=== PATIENT | female | born 1990 ===

== ENCOUNTER 2017-03-16 17:28 | Inpatient (IN) | payer OTHER ==
[~2017-03-16] VITALS: Ht 170.2 cm; Wt 122.5 kg
[2017-03-16 18:22] LABS: HEMOGLOBIN 11.2 gm/dl (12.3-15.3); RED BLOOD COUNT 3.61 M/UL (4.00-5.10)
[2017-03-16 18:42] LABS: BUN/CREATININE RATIO 20 (0-10)
[2017-03-18 04:14] LABS: HEMOGLOBIN 9.2 gm/dl (12.3-15.3)
[2017-03-19] MEDS ORDERED: COLACE 100MG C100 MG PO (11:47)
== END 2017-03-19 09:18 | disposition home or self-care (01) | DRG 766 ==
LOC: GENOP 17:28 → OB 17:45
PROVIDERS: Obstetrics & Gynecology; ADMIT Obstetrics & Gynecology
PROC: 10D00Z1 Extraction of Products of Conception, Low, Open Approach (ICD-10-PCS; principal; 2017-03-17 09:05)
PROC: 3E0234Z Introduction of Serum, Toxoid and Vaccine into Muscle, Percutaneous Approach (ICD-10-PCS; 2017-03-19)
DX: O34.211 Maternal care for low transverse scar from previous cesarean delivery (principal); O13.4 Gestational [pregnancy-induced] hypertension without significant proteinuria, complicating childbirth; N85.8 Other specified noninflammatory disorders of uterus; Z3A.38 38 weeks gestation of pregnancy; Z37.0 Single live birth; Z23 Encounter for immunization; O69.81X0 Labor and delivery complicated by cord around neck, without compression, not applicable or unspecified
CPT/HCPCS: 36415; 80053; 81001; 82800; 83615; 84550; 85014; 85018; 85025; 85461; 86900; 86901; 90715; C9113; J0690; J1650; J2274; J2405; J2550; J2590; J2765; J3010; J7030; J7120